=== PATIENT | female | born 1985 | race African-American/Black ===

== ENCOUNTER 2021-11-18 11:40 | Emergency (ER) | payer OTHER, SELFPAY ==
--- NOTE | ~2021-11-18 | XR_ITS ---
EXAMINATION: XR shoulder RT min 2V DATE: 11/18/2021 13:24 INDICATION: Postreduction right glenohumeral dislocation. TECHNIQUE: AP and transscapular Y views of the right shoulder were obtained. COMPARISON: 11/18/2021 at 12:58 PM FINDINGS: Successful reduction of a previously dislocated right glenohumeral joint which is now in normal align ment. No evident fracture. Glenohumeral and acromioclavicular joint spaces appear normal. Soft tiss ues are unremarkable. Small right lung volume with no airspace opacities, pleural effusion or pneumot horax. IMPRESSION: Normal alignment with no evident fracture post successful reduction of a previously anteriorly disloc ated right glenohumeral joint. Reviewed, dictated and finalized at location A. IMPRESSION: Normal alignment with no evident fracture post successful reduction of a previo usly anteriorly dislocated right glenohumeral joint.
--- NOTE | ~2021-11-18 | XR_ITS ---
EXAMINATION: XR shoulder RT min 2V DATE: 11/18/2021 13:03 INDICATION: Right shoulder pain post injury TECHNIQUE: AP and transscapular Y views of the right shoulder were obtained. COMPARISON: None FINDINGS: There is anterior dislocation of the right humeral head with respect to the glenoid. No fracture evid ent on the provided projections. Acromioclavicular joint space is normal. Concavity to the skin conto ur posterior to the shoulder resulting from the anterior glenohumeral dislocation. Soft tissues are o therwise unremarkable. Right lung is clear with small lung volume. IMPRESSION: Anterior right glenohumeral joint dislocation Reviewed, dictated and finalized at location A.
[2021-11-18] MEDS: ONDANSETRON HCL ODT 4 MG TABLET PO (12:32)
[2021-11-18] MEDS: HYDROmorphone HCL INJ (*CRX) 1 MG/ML SYR IM (12:32)
[2021-11-18] MEDS: diazePAM (*CRX) 5 MG TABLET PO (12:53)
--- NOTE | 2021-11-18 13:32 | ED.UPPEXIN ---
HPI - Extremity Injury (Upper) General Chief Complaint: Extremity Injury, Upper Stated Complaint: R shoulder pain/injury Time Seen by Provider: 11/18/21 12:25 Source: patient and EMS Mode of arrival: EMS Limitations: no limitations History of Present Illness HPI narrative: 36 years old -[place] female came from work by ambulance complaining of severe right shoulder and arm pain after tripping and falling prior to arrival. She denies other injuries, loss of consciousness or head injury. Related Data Allergies Allergy/AdvReac Type Severity Reaction Status Date / Time No Known Allergies Allergy Unknown Verified 11/18/21 11:54 Review of Systems Review of Systems: All systems reviewed & are unremarkable except as noted in HPI and below Exam Narrative: General appearance: Well-developed, well-nourished Skin: Normal color Head: Normocephalic, nontraumatic Eyes: Clear conjunctiva ENT: Oropharynx normal, ears normal, nose normal Neck: Supple, nontender Chest and respiratory: Airway patent, no respiratory distress, no accessory muscle use Heart: Regular rate/rhythm Abdomen: Soft, nontender, no organomegaly, quiet bowel sounds Vascular: Normal peripheral pulses, normal capillary refill. 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, no gross motor deficit Procedures Orthopedic Joint Reduction Joint #1: Orthopedic Joint Reduction Date: 11/18/21 Orthopedic Joint Reduction Time: 13:36 Time Out Performed: Yes (15) Side: right Joint Reduction Location: shoulder Analgesia: other (Dilaudid 1 mg IM, Valium 5 mg orally) Pre-Procedure Neuro Vascular Exam: normal Shoulder Technique Used (if applicable): external rotation Post-reduction neuro exam: intact Post-reduction vascular: intact Post Reduction X-Ray Obtained: Yes Post Reduction X-Ray Results: reduced Splint Applied: Yes Patient Tolerated Procedure: well MDM - Extremity Injury (Upper) Imaging Data My impression: Impressions Shoulder X-Ray 11/18/21 13:05 IMPRESSION: Anterior right glenohumeral joint dislocation Shoulder X-Ray 11/18/21 13:25 IMPRESSION: Normal alignment with no evident fracture post successful reduction of a previously anteriorly dislocated right glenohumeral joint. Critical Care Time Critical Care Time Critical Care Time: No Discharge Plan Discharge Clinical Impression: Dislocation of shoulder region Patient Disposition: Home, Self-Care Condition: Stable Instructions: Antibiotic Form Additional Instructions: Return if symptoms are worsening , call Dr. Joseph for appointment, take ibuprofen 600 every 6 hours as needed Prescriptions: New hydrocodone-acetaminophen 5-325 mg tablet 1 tablet PO Q4H Qty: 20 0RF Follow-up/Referrals: Russ Joseph MD [Physician] - 11/21/21 Rowdy,Dimitrios Christensen DO [Primary Care Provider] - Stand Alone Forms: Work/School Release IP
[2021-11-18 13:54] VITALS: BP 138/100; PULSE 100; RESP 18; O2SAT 97
== END 2021-11-18 13:56 | disposition home or self-care (01) ==
PROVIDERS: Emergency Provider Emergency Medicine; PCP Family Medicine
DX: S43.084A Other dislocation of right shoulder joint, initial encounter (principal); W01.0XXA Fall on same level from slipping, tripping and stumbling without subsequent striking against object, initial encounter
CPT/HCPCS: 23650; 73030; 96372; 99285; A9270; J1170